=== PATIENT | female | born 1940 | race Caucasian/White ===

== ENCOUNTER → 2017-04-27 | Day surgery (SDC) | payer MEDICARE ==
[~2017-04-27] MED LIST: Phenylephrine 2.5% Ophth Soln 2 ML Bot EYERT SCH
[2017-04-27] MEDS: Brimonidine 0.2% Ophth Soln 5 ML Bottle EYELF SCH ×2 (08:18→08:41)
[2017-04-27 13:41] VITALS: BP 151/75
== END ==
LOC: JD.SDS 08:02
PROVIDERS: ATTEND Ophthalmology
DX: H26.492 Other secondary cataract, left eye (principal); H16.103 Unspecified superficial keratitis, bilateral; H16.223 Keratoconjunctivitis sicca, not specified as Sjogren's, bilateral; F41.9 Anxiety disorder, unspecified; E07.9 Disorder of thyroid, unspecified; I10 Essential (primary) hypertension; F17.210 Nicotine dependence, cigarettes, uncomplicated; Z88.0 Allergy status to penicillin; Z98.42 Cataract extraction status, left eye; Z98.41 Cataract extraction status, right eye; Z96.1 Presence of intraocular lens

== ENCOUNTER 2024-06-09 14:10 | Emergency (ER) | payer MEDICARE, OTHER ==
[2024-06-09] MEDS ORDERED: cefTRIAXone 500 MG Vial IVPUSH ONE (14:30)
[2024-06-09] MEDS ORDERED: Naloxone 0.4 MG/ML SDV IVPUSH PRN (14:33)
[2024-06-09] MEDS: fentaNYL 100 MCG/2 ML SDV IVPUSH ONE ×2 (14:49→19:19)
[2024-06-09] MEDS: Sodium Chloride 0.9% 1,000 ML IV ONE ×2 (14:52→17:54)
[2024-06-09] MEDS: metroNIDAZOLE/Normal Saline 500 MG in Premix Bag 1 BAG IV ONE (14:53)
[2024-06-09] MEDS: cefTRIAXone 2 GM Vial IVPUSH ONE (15:01)
[2024-06-09 15:14] LABS: BASOPHILS PERCENT AUTO 0.6 % (0.0-1.0); EOSINOPHILS PERCENT AUTO 0.2 % (0.0-6.0); HEMATOCRIT 37.4 % (37.0-47.0); HEMOGLOBIN 12.2 gm/dl (12.0-16.0); IMMATURE GRAN ABSOLUTE AUTO 0.02 K/mm3 (0.00-0.05); IMMATURE GRAN PERCENT AUTO 0.4 % (0.0-0.4); LYMPHOCYTES ABSOLUTE AUTO 0.6 K/mm3 (1.0-4.8); LYMPHOCYTES PERCENT AUTO 11.5 % (24.0-44.0); MEAN CORPUSCULAR HEMOGLOBIN 26.8 pg (28.0-32.0); MEAN CORPUSCULAR HGB CONC 32.6 g/dl (32.0-36.0); MEAN PLATELET VOLUME 8.2 fl (9.4-12.3); MONOCYTES ABSOLUTE AUTO 0.1 K/mm3 (0.0-0.8); MONOCYTES PERCENT AUTO 1.9 % (0.0-8.0); NEUTROPHILS ABSOLUTE AUTO 4.4 K/mm3 (1.8-7.7); NEUTROPHILS PERCENT AUTO 85.4 % (41.0-71.0); PLATELET COUNT,PLT 472 K/mm3 (150-400); RED BLOOD CELL COUNT 4.56 M/mm3 (4.10-5.30); WHITE BLOOD CELL COUNT,WBC 5.15 K/mm3 (3.9-11.3)
[2024-06-09 15:29] LABS: INR 1.23; PROTHROMBIN TIME 12.9 SECONDS (9.7-12.0)
[2024-06-09 15:34] VITALS: BP 98/42; PULSE 97
[2024-06-09] MEDS ORDERED: Sodium Chloride 0.9% 500 ML IV ONE (15:34)
[2024-06-09 15:42] LABS: A/G RATIO 0.5 (1-2); ALANINE AMINOTRANSFERASE,ALT 16 U/L (14-59); ALBUMIN 1.9 g/dl (3.4-5.0); ALKALINE PHOSPHATASE 77 U/L (46-116); ANION GAP 16.8 (5-15); ASPARTATE AMNIOTRANSFERASE,AST 23 U/L (15-37); BILIRUBIN TOTAL 1.1 mg/dL (0.2-1.0); BLOOD UREA NITROGEN,BUN 24 mg/dL (7-18); BUN/CREATININE RATIO 18.5 (14-18); CALCIUM 8.8 mg/dL (8.5-10.1); CARBON DIOXIDE,CO2 29 mEq/L (21-32); CHLORIDE,CL 90 mEq/L (98-107); CREATINE KINASE,CK 13 U/L (26-192); CREATININE 1.3 mg/dL (0.55-1.02); ESTIMATED GFR 41 mL/min (>60); GLUCOSE RANDOM 126 mg/dL (70-99); LIPASE 10 U/L (16-77); MAGNESIUM 1.7 mg/dL (1.8-2.4); POTASSIUM,K 2.8 mEq/L (3.5-5.1); PROTEIN TOTAL,TP 6.1 g/dl (6.4-8.2); SODIUM,NA 133 mEq/L (136-145)
[2024-06-09 16:05] LABS: TROPONIN I HIGH SENSITIVITY < 4 pg/mL (<=51)
[2024-06-09] MEDS: fentaNYL 100 MCG/2 ML SDV IVPUSH STA (16:23)
[2024-06-09] MEDS: Iopamidol 612 MG/ML 100 ML Bottle IVPUSH ONE (16:40)
[2024-06-09] MEDS: Sodium Chloride 0.9% 10 ML Syringe FLUSH ONE (16:40)
[2024-06-09 16:51] LABS: C-REACTIVE PROTEIN 24.32 mg/dL (<0.30)
[2024-06-09] MEDS: Potassium Chloride 10 MEQ in Premix Bag 1 BAG IV SCH (17:54)
== END 2024-06-09 18:07 ==
LOC: JD.ED 14:10
DX: A41.9 Sepsis, unspecified organism (principal); K51.30 Ulcerative (chronic) rectosigmoiditis without complications; N28.9 Disorder of kidney and ureter, unspecified; E87.6 Hypokalemia; E03.9 Hypothyroidism, unspecified; Z90.49 Acquired absence of other specified parts of digestive tract; Z88.0 Allergy status to penicillin; Z79.890 Hormone replacement therapy; Z79.899 Other long term (current) drug therapy
CPT/HCPCS: 36415; 71045; 74177; 80053; 82550; 83605; 83690; 83735; 83880; 84484; 85025; 85610; 86140; 86850; 86900; 86901; 87040; 87154; 93005; 96361; 96365; 96366; 96367; 96375; 96376; 99285; J0696; J1836; J3010; J3480; J7030; Q9967; 93010